=== PATIENT | female | born 1955 | race Caucasian/White ===

== ENCOUNTER 2022-01-07 17:06 | Emergency (ER) | payer OTHER ==
[~2022-01-07] VITALS: Ht 165.1 cm; Wt 72.5 kg
[2022-01-07] MEDS ORDERED: ondansetron/PF 4mg/2ml inj IV ONE (17:40)
[2022-01-07] MEDS ORDERED: morphine 4 MG/ML inj SYRINge IV ONE (17:40)
[2022-01-07] MEDS ORDERED: IBUP-1986 PO (19:25)
[2022-01-07] MEDS ORDERED: HYDR-3965 PO (19:25)
[2022-01-07 19:31] VITALS: BP 110/72
== END 2022-01-07 20:16 | disposition home or self-care (01) ==
LOC: ER 17:08
DX: S42.211A Unspecified displaced fracture of surgical neck of right humerus, initial encounter for closed fracture (principal); M25.511 Pain in right shoulder; Z85.3 Personal history of malignant neoplasm of breast; Z98.890 Other specified postprocedural states; W01.0XXA Fall on same level from slipping, tripping and stumbling without subsequent striking against object, initial encounter; Y93.89 Activity, other specified; Y92.89 Other specified places as the place of occurrence of the external cause; Y99.8 Other external cause status
CPT/HCPCS: 73030; 73502; 96374; 96375; 99284; J2270; J2405